=== PATIENT | male | born 2000 | race African-American/Black ===

== ENCOUNTER 2024-02-02 00:31 | Emergency (ER) | payer MEDICAID ==
[~2024-02-02] VITALS: Ht 167.6 cm; Wt 70.0 kg
[2024-02-02 00:38] VITALS: O2SAT 100
[2024-02-02] MEDS ORDERED: LIDOCAINE HCL/EPINEPHRINE 1%-EPI 1:100,000 20 ML VIAL INFIL ONE (04:30)
[2024-02-02] MEDS ORDERED: LIDOCAINE HCL/EPINEPHRINE 1%-EPI 1:100,000 20 ML VIAL INFIL NR (04:45)
[2024-02-02] MEDS: TETANUS, DIPHTHERIA, PERTUSSIS VAC/PF 0.5ML (>10YR OLD) IM ONE (05:14)
[2024-02-02] MEDS: HYDROCODONE/ACETAMINOPHEN 5/325MG TABLET PO ONE (05:15)
[2024-02-02] MEDS: BACITRACIN ZINC OINT UDPKT TOP ONE (05:16)
[2024-02-02] MEDS ORDERED: CEPH500C2 MT (06:18)
[2024-02-02] MEDS ORDERED: IBUP-2029 MT (06:18)
[2024-02-02 07:38] VITALS: BP 118/62; PULSE 88; RESP 14; TEMP 97.7
== END 2024-02-02 07:39 | disposition home or self-care (01) ==
LOC: ER 00:31
DX: S01.81XA Laceration without foreign body of other part of head, initial encounter (principal); V98.8XXA Other specified transport accidents, initial encounter; Y93.89 Activity, other specified; Y92.89 Other specified places as the place of occurrence of the external cause; Y99.8 Other external cause status
CPT/HCPCS: 99283; 90715; 12004; 90471; J3490

== ENCOUNTER 2024-02-14 09:39 | Emergency (ER) | payer MEDICAID, OTHER ==
[~2024-02-14] VITALS: Ht 180.3 cm; Wt 99.0 kg
[~2024-02-14 09:39] MED LIST: CEPH500C2 MT; IBUP-2029 MT
[2024-02-14 09:44] VITALS: O2SAT 100
[2024-02-14 12:30] VITALS: BP 112/68; PULSE 77; RESP 19; TEMP 98
== END 2024-02-14 13:05 | disposition home or self-care (01) ==
LOC: ER 09:39
DX: S01.91XD Laceration without foreign body of unspecified part of head, subsequent encounter (principal); X58.XXXD Exposure to other specified factors, subsequent encounter
CPT/HCPCS: 99281